=== PATIENT | female | born 1990 | race Caucasian/White ===

== ENCOUNTER 2018-12-09 13:40 | Inpatient (IN) | payer BC ==
[2018-12-09 14:19] VITALS: BMI 34.9
[2018-12-09 15:07] LABS: BASO % 0.5 % (0.0-2.0); EOS # 0.2 K/uL (0.0-0.7); EOS % 2.6 % (0.0-4.0); HEMOGLOBIN 12.7 g/dL (12.0-16.0); LYMPH # 1.4 K/uL (1.0-4.3); LYMPH % 17.2 % (20.0-40.0); MEAN CELL VOLUME 91.2 fl (81.0-99.0); MEAN CORPUSCULAR HGB CONC 32.9 g/dL (33.0-37.0); MONO # 0.6 K/uL (0.0-0.8); MONO % 6.6 % (0.0-10.0); NEUT # 6.1 K/uL (1.8-7.0); NEUT % 73.1 % (50.0-75.0); NRBC % 0.2 % (0.0-0.0); RBC 4.24 Mil/uL (3.80-5.20); RED CELL DISTRIBUTION WIDTH 14.1 % (11.5-14.5); WHITE BLOOD COUNT 8.4 K/uL (4.8-10.8)
[2018-12-09 15:29] VITALS: RESP 18; O2SAT 99
--- NOTE | 2018-12-10 09:00 | OBHP ---
Datetime: 12/09/2018 14:15 IP Adm Impression: Term, intrauterine ; Intact Membranes IP Admit Plan: Admit to unit; Initiate labor augmentation protocol Pelvic Type - PN: Adequate Extremities - PN: Normal Back - PN: Not Done Breast - PN: Not Done Lungs - PN: Normal Heart - PN: Normal Thyroid - PN: Not Done Neurologic - PN: Not Done HEENT - PN: Not Done General - PN: Normal Weight - Estimated: 3240 Presentation-Admit: Vertex FHR - Baseline A Provider: 120 Membranes, Provider: Intact Contraction Comments Provider: none Comments, ACOG Physical Exam: U/S @ [facility] today shows fetus in cephalic presentation Gestation - Est Wks by US: 39.3 Pool Provider: Negative Ferning Provider: Negative IP Hx Assessment: The History has been Reviewed and is Current Vital Signs Provider: Reviewed; Within Normal Limits IP Indication for Induction: Oligohydramnios IP Chief Complaint: Suspected ruptured membranes NICHD Variability Prov Fetus A: Moderate 6-25bpm NICHD Accel Fetus A IP Provider: 15X15 FHR Category Provider Fetus A: Category I NICHD Decel Fetus A IP Provider: None Dilatation, Provider: closed Effacement, Provider: thick Station, Provider: high Genitourinary Exam: Normal DTRs - PN: Not Done Datetime: 12/09/2018 14:00 Admit Comment, IP Provider: 28 y/o female @ 39.0 wk GA presents to [facility] after U/S showed snhydr amnios (KAREN 0.00 cm) at [facility]. Patient denies ctx, vaginal fluid loss, vaginal bleeding, endorses movement. OB: Dr. [place] Obhx: denies Pmhx: asthma HomeRx: vitamins FamHx: Mother has HTN SocialHx: denies toxic habits Allergies: Shrimp: itching ROS negative except as per HPI Physical Exam Gen: no acute distress, sitting up comfortably Heart: S1 S2 present, normal RRR Lungs: normal resp. effort, clear to auscultation bilaterally Abd: gravid, normal BS, soft, non-tender Speculum exam (by Dr. Branham) no vaginal fluid pooling, some discharge visualized SVE (Dr. Branham) closed/thick/high Extremities: no swelling/erythema/tenderness Assessment and Plan 28 y/o female @ 39.0 wk IUP w/ anhydramnios on U/S at [facility] today GBS neg, 3rd trimester HIV _ RPR negative, HsBAg neg, Rubella immune, GC/C neg Speculum exam: no pooling; ferning negative. Mullin: no ctx Admit to L_D for IOL CBC, Type and screen Mullin and NST monitoring Cervidil 10mg intravaginally Can have epidural; anesthesiology consulted Case discussed w/ attending, Dr. Yonas Larios, pgyi OB Hospitalist independent crop consultant. Pt seen and examined by me. Agree with note. Condition, IOL, labor, pain management, delivey and post discussed. Her questoins answered. MAHNDO Abdomen - PN: Normal
[2018-12-10] MEDS ORDERED: Oxytocin 30 UNIT 30 UNITS/500 ML BAG IV ONE ×2 (10:24→10:40)
[2018-12-10] MEDS ORDERED: OXYTOCIN/0.9 % NS 20 UNIT/1,000 ML BAG IV ONE (10:40)
[2018-12-10] MEDS ORDERED: Lactated Ringer's 500 ML IV SCH ×2 (10:45)
[2018-12-10] MEDS: Lactated Ringer's 1,000 ML IV SCH ×4 (10:45→22:35)
[2018-12-10] MEDS ORDERED: Fentanyl/Bupivacaine HCl 250 ML EPI ONE (11:16)
--- NOTE | 2018-12-10 11:29 | OBPN ---
Datetime: 12/10/2018 10:36 IP Progress Impression: Normal progression of labor IP Procedures: Sterile Vag Exam IP Progress Plan: Continue present management; Augmentation; Cervical Ripening Contraction Comments Provider: occasional FHR - Baseline A Provider: 145 Gestation - Est Wks by US: 39.4 IP Progress Note Comment: S: Patient lying in bed comfortably. Has mild ctx pain, tolerating pain. O: SVE (By Dr. Ahmadi): 1-2cm/50%/-2 A: 28 y/o female @ 39.4 wk GA IUP. NST has minimal variability P: Start pitocin at 2mL/hr IV titrated up 2mLs every 30 minutes until cxt are 2-3 mins apart. Cerv ical dilation baloon inserted. 500mL LR IV bouls ordered. Discussed pain management options, patient refuses at this time. Case discussed w/ Dr. Daiana Larios, pgyi Addendum by Dr. Ahmadi: I have evaluated the patient indpendently and I agree with the above. The p atient was evalauted, 1-2/50/-2, midposition. Discussed with patient would insert Cook's balloon and start Pitocin for continuation of induction. Cook's balloon placed sucessfully, 80ml/80mL in each bal loon. Patient offered patient medication, which she declined at this time. FHR = 150 mod cam, no acce ls, early deceleration noted. TOCO = vel infrequently. Will re-evalaute patient when necessar y. CEFM and TOCO Vital Signs Provider: Reviewed; Within Normal Limits NICHD Variability Prov Fetus A: Minimal - Undetectable to <5bpm Dilatation, Provider: 1-2 Effacement, Provider: 50 Station, Provider: -2 NICHD Decel Fetus A IP Provider: None Datetime: 12/09/2018 14:15 Pool Provider: Negative Ferning Provider: Negative Membranes, Provider: Intact Weight - Estimated: 3240 Presentation-Admit: Vertex NICHD Accel Fetus A IP Provider: 15X15 FHR Category Provider Fetus A: Category I
--- NOTE | 2018-12-10 13:30 | OBPN ---
Datetime: 12/10/2018 13:25 IP Informed Consent Obtain: Vaginal Delivery IP Progress Plan: Continue present management Contraction Comments Provider: q 4 mins FHR - Baseline A Provider: 150 IP Progress Note Comment: Patient evaluated, comfortable s/p epidural. FHR = 150 mod cam, no accels, late decelerations noted. Patient turned to right lateral position, O2 mask applied, Pitocin was tur alva off about an hour prior and restarted. Will continue to observe. If recurrent late decelerations continue, will stop Pitocin again, reduce bal bulb and attempt ROM with amnioinfusion. Discussed wi th patient that if can not continue with augmentation secondary to worsening Cat-2 tracing will consi nicolle for modality of delivery Vital Signs Provider: Reviewed; Within Normal Limits NICHD Variability Prov Fetus A: Moderate 6-25bpm NICHD Decel Fetus A IP Provider: Late
--- NOTE | 2018-12-10 16:06 | OBPN ---
Datetime: 12/10/2018 15:00 IP Progress Impression: Normal progression of labor IP Informed Consent Obtain: Vaginal Delivery IP Procedures: Sterile Vag Exam IP Progress Plan: Continue present management Membranes, Provider: Ruptured Contraction Comments Provider: q 2-5 FHR - Baseline A Provider: 150 IP Progress Note Comment: Patient evaluated, comfortable VE=6/60/-2, AROM FHR = 155 mod cam, +accels, no decels TOCO = ctxning q 2-5 mins, Pit @ 6mu/min A/P 1. Patient progressing well, now 6cm, now AROM 2. continue pitocin for augmentation, patient having early decelerations with mod variability 3. CEFM and TOCO Vital Signs Provider: Reviewed; Within Normal Limits NICHD Variability Prov Fetus A: Moderate 6-25bpm Dilatation, Provider: 6 Effacement, Provider: 60 Station, Provider: -2 NICHD Decel Fetus A IP Provider: Early; Variable
--- NOTE | 2018-12-10 16:33 | OBPN ---
Datetime: 12/10/2018 16:29 IP Progress Impression: Normal progression of labor IP Informed Consent Obtain: Vaginal Delivery IP Procedures: Sterile Vag Exam IP Progress Plan: Continue present management Membranes, Provider: Ruptured Contraction Comments Provider: q 2 mins FHR - Baseline A Provider: 150 IP Progress Note Comment: Patient feeling comfortable - pt had prolonged deceleration from baseline 130 to 80 for about 3 mins with recovery, moderate variablity. Now FHR = 150 mod cam, no accels, kurt y decels. pitocin @ 10 mu/min. No other signs of maternal or distress. CEFM and TOCO NICHD Variability Prov Fetus A: Moderate 6-25bpm Dilatation, Provider: 6 Effacement, Provider: 60 Station, Provider: -2 NICHD Decel Fetus A IP Provider: Early
--- NOTE | 2018-12-10 17:56 | OBPN ---
Datetime: 12/10/2018 17:30 IP Progress Impression: Non-reassuring heart rate IP Informed Consent Obtain: Vaginal Delivery IP Procedures: Sterile Vag Exam Contraction Comments Provider: q 2-4 mins FHR - Baseline A Provider: 150 IP Progress Note Comment: Patient evaluated, communication from RN. FHR = 150 mod cam, +variables, + late deceleration. VE = 6/60/0. Pitocin stopped, O2 mask, rescuscitation methods. Will restart Pitoci n in 30 - 45 mins if FHR continues to be reassuring. CEFM and TOCO Vital Signs Provider: Reviewed; Within Normal Limits NICHD Variability Prov Fetus A: Moderate 6-25bpm Dilatation, Provider: 6 Effacement, Provider: 60 Station, Provider: 0 NICHD Decel Fetus A IP Provider: Late; Variable
--- NOTE | 2018-12-10 19:51 | OBPN ---
Datetime: 12/10/2018 19:00 IP Informed Consent Obtain: Vaginal Delivery IP Procedures: Sterile Vag Exam Membranes, Provider: Ruptured Contraction Comments Provider: q 1-3 mins FHR - Baseline A Provider: 150 IP Progress Note Comment: Patient evaluated, feeling some increased pain with contractions. Anesthes ia at bedside for evaluation VE=6/60/0 FHR = 150 mod cam, +accels, no decels TOCO = ctnxing q 1-3 mins. Pit @ 6 mu/min A/P 1. patient has made no cervical change in 2 hours. Continue to monitor for regular contractions an d increase Pitocin. If no change at next exam, may consider for delivery 2. CEFM and TOCO 3. Re-evaluate as needed Vital Signs Provider: Reviewed; Within Normal Limits NICHD Accel Fetus A IP Provider: 15X15 NICHD Variability Prov Fetus A: Moderate 6-25bpm Dilatation, Provider: 6 Effacement, Provider: 60 Station, Provider: 0 NICHD Decel Fetus A IP Provider: Variable
--- NOTE | 2018-12-10 20:42 | OBPN ---
Datetime: 12/10/2018 20:39 IP Progress Impression: Normal progression of labor IP Informed Consent Obtain: Vaginal Delivery IP Procedures: Sterile Vag Exam IP Progress Plan: Continue present management Membranes, Provider: Ruptured Contraction Comments Provider: q 2-3 mins FHR - Baseline A Provider: 145 IP Progress Note Comment: Patient evaluated, feeling more pressure VE=9/100/0 FHR = 145 mod variability, variable decelerations TOCO = ctxning q 2-3 mins, Pitocin @ 10mu/min A/P 1. Patient progressing well in labor 2. When patient is in second stage will start pushing 3. CEFM and TOCO NICHD Variability Prov Fetus A: Moderate 6-25bpm Dilatation, Provider: 9 Effacement, Provider: 100 Station, Provider: 0 NICHD Decel Fetus A IP Provider: Variable
[2018-12-10] MEDS ORDERED: Oxycodone/Acetaminophen 5/325 mg Tab PO PRN (22:17)
[2018-12-10] MEDS ORDERED: Benzocaine/Menthol SPRAY TOP PRN (22:17)
[2018-12-10] MEDS ORDERED: ceFAZolin 2 GM in Sodium Chloride 0.9% 100 ML IVPB ONE (22:18)
--- NOTE | 2018-12-10 22:32 | OBDS ---
MATERNAL INFORMATION Provider Comments: of live male over intact perineum, NENITA presentation with loose nuchal cord and compound presentation, followed by shoulders and rest of infant, terminal meconium, mouth a nd nose suctioned, cords clamped and cut, cord blood obtained, infant handed to waiting manager news, placenta delivered spontaneously, small piece of membrane delivered manually, EBL = 200mL, 2nd degre e repaired with 2-0 vicryl rapide, pt otherwise tolerated procedure well, fundus firm LABOR SUMMARY EDC: 12/13/2018 00:00 No. Babies in Womb: 1 LABOR INFORMATION Cervical Ripening Agents: Cervidil Group B Beta Strep: Negative MEMBRANES Membranes Rupture Method: Artificial Rupture of Membranes: 12/10/2018 15:00 Amniotic Fluid Color: Bloody Amniotic Fluid Amount: Scant Amniotic Fluid Odor: Normal
[2018-12-11] MEDS ORDERED: Lactated Ringer's 1,000 ML IV SCH ×2 (02:09→02:28)
[2018-12-11] MEDS ORDERED: Benzocaine/Menthol SPRAY TOP PRN ×2 (02:09→02:28)
[2018-12-11] MEDS ORDERED: Oxycodone/Acetaminophen 5/325 mg Tab PO PRN ×2 (02:09→02:28)
[2018-12-11 06:12] LABS: BASO % 0.2 % (0.0-2.0); EOS % 0.3 % (0.0-4.0); HEMOGLOBIN 10.4 g/dL (12.0-16.0); LYMPH # 1.3 K/uL (1.0-4.3); LYMPH % 8.9 % (20.0-40.0); MEAN CELL VOLUME 90.5 fl (81.0-99.0); MEAN CORPUSCULAR HEMOGLOBIN 29.9 pg (27.0-31.0); MEAN CORPUSCULAR HGB CONC 33.1 g/dL (33.0-37.0); MEAN PLATELET VOLUME 10.2 fl (7.2-11.7); MONO # 1.1 K/uL (0.0-0.8); MONO % 8.1 % (0.0-10.0); NEUT # 11.8 K/uL (1.8-7.0); NEUT % 82.5 % (50.0-75.0); PLATELET COUNT 158 K/uL (130-400); RBC 3.46 Mil/uL (3.80-5.20); RED CELL DISTRIBUTION WIDTH 14.4 % (11.5-14.5); WHITE BLOOD COUNT 14.2 K/uL (4.8-10.8)
[2018-12-11] MEDS: Multivitamin With Minerals Tab PO SCH (08:32)
[2018-12-11] MEDS ORDERED: Multivitamin With Minerals Tab PO SCH ×2 (09:00)
[2018-12-11 12:54] LABS: BANDS 1 % (0-2); HYPOCHROMIC SLIGHT; LYMPHOCYTE 5 % (20-50); MONOCYTE 4 % (0-10); NEUTROPHIL 90 % (42-75); PLATELET ESTIMATE NORMAL (NORMAL); TOTAL CELLS COUNTED 100
[2018-12-11 12:55] LABS: LARGE PLATELETS PRESENT
--- NOTE | 2018-12-11 17:19 | OBPPN ---
Datetime: 12/11/2018 17:17 PP Pain Prov: Within normal limits PP Nausea Prov: Denies PP Flatus Prov: Yes PP Breasts Prov: Not Done PP Heart Prov: Normal PP Lungs Prov: Normal PP Abdomen/Uterus Prov: Normal PP Lochia Prov: Not Done PP Vulva/Perineum Prov: Not Done PP CVA Tenderness Prov: Not Done PP Extremities Prov: Normal PP Impression Prov: Normal progression PP Plan Prov: Continue present management PP Progress Note Prov: PPD1 doing well reports minimal lochia vss afebrile uterus firm ext no homans PPD1 Ambulate reg diet analgesia as needed Vital Signs Provider PP: Reviewed
[2018-12-12] MEDS: Multivitamin With Minerals Tab PO SCH (09:04)
[2018-12-13 01:23] VITALS: BP 122/70; PULSE 82; TEMP 98.6
--- NOTE | 2018-12-13 11:16 | OBPPN ---
Datetime: 12/12/2018 11:15 PP Pain Prov: Within normal limits PP Nausea Prov: Denies PP Flatus Prov: Yes PP BM Prov: Yes PP Breasts Prov: Normal PP Heart Prov: Normal PP Lungs Prov: Normal PP Abdomen/Uterus Prov: Normal PP Lochia Prov: Normal PP Vulva/Perineum Prov: Normal PP CVA Tenderness Prov: Normal PP Extremities Prov: Normal PP C/S Incision Prov: Normal PP Progress Prov: Normal PP Impression Prov: Normal progression PP Plan Prov: Continue present management; Discharge PP Progress Note Prov: day #2 status post , patient recovering well. Patient discharged home with instructions and precautions. Discussed plan with patient and all patient. IP PP Procedures: None Vital Signs Provider PP: Reviewed; Within Normal Limits
--- NOTE | 2018-12-13 11:18 | OBDCSUM ---
Datetime: 12/12/2018 08:04 Discharge Instructions, Provider: Routine instructions given Discharge Diagnosis, Provider: Term Delivered Discharge Time: 12/12/2018 19:30 Disch Referrals: None Contraception discussed, Prov: Yes
== END 2018-12-12 19:30 | disposition home or self-care (01) | DRG 807 ==
LOC: H.EROB2 13:40 → H.L&D 14:19 → H.OB/GYN 12-11 02:00
PROVIDERS: ADMIT Obstetrics & Gynecology; ATTEND Obstetrics & Gynecology
PROC: 4A1HXCZ Monitoring of Products of Conception, Cardiac Rate, External Approach (ICD-10-PCS; 2018-12-09)
PROC: 10E0XZZ Delivery of Products of Conception, External Approach (ICD-10-PCS; principal; 2018-12-10)
PROC: 0KQM0ZZ Repair Perineum Muscle, Open Approach (ICD-10-PCS; 2018-12-10)
DX: O41.03X0 Oligohydramnios, third trimester, not applicable or unspecified (principal); Z37.0 Single live birth; Z3A.39 39 weeks gestation of pregnancy; O77.0 Labor and delivery complicated by meconium in amniotic fluid; O76 Abnormality in fetal heart rate and rhythm complicating labor and delivery; O69.81X0 Labor and delivery complicated by cord around neck, without compression, not applicable or unspecified; O99.52 Diseases of the respiratory system complicating childbirth; J45.909 Unspecified asthma, uncomplicated